=== PATIENT | female | born 1995 | race Caucasian/White ===

== ENCOUNTER 2016-08-16 20:04 | Inpatient (IN) | payer OTHER ==
[2016-08-16 21:05] LABS: HCT 36.3 % (37.0-47.0); HGB 12.3 g/dl (12.5-16.0); MCH 28.5 pg (25.0-31.0); MCHC 33.9 g/dL (32.0-36.0); MPV 12.2 fL (6.0-9.5); RBC 4.32 M/uL (4.20-5.40); RDW 13.9 % (11.5-14.0); WBC 9.8 K/uL (4.0-10.5)
[2016-08-16 21:06] LABS: BILIRUBIN NEGATIVE (NEGATIVE); BLOOD NEGATIVE Ery/uL (NEGATIVE); CLARITY CLEAR (CLEAR); COLOR YELLOW (YELLOW); GLUCOSE (U) NORMAL (NORMAL); KETONE (U) NEGATIVE (NEGATIVE); LEUKOCYTES 1+ Leu/uL (NEGATIVE); NITRITE NEGATIVE (NEGATIVE); PROTEIN NEGATIVE (NEGATIVE); UROBILINOGEN 0.2 mg/dL (0.2-1.0)
[2016-08-16 21:10] LABS: BACTERIA TRACE; URINARY RBC RARE
[2016-08-16 21:16] LABS: AMPHETAMINES NEGATIVE (NEGATIVE); BARBITURATES NEGATIVE (NEGATIVE); BENZODIAZEPINES NEGATIVE (NEGATIVE); COCAINE NEGATIVE (NEGATIVE); MARIJUANA (THC) NEGATIVE (NEGATIVE); METHADONE NEGATIVE (NEGATIVE); TRICYCLIC ANTIDEPRESSANT NEGATIVE (NEGATIVE)
[2016-08-18 09:57] LABS: HCT 31.2 % (37.0-47.0); HGB 10.6 g/dl (12.5-16.0); MCH 28.9 pg (25.0-31.0); MPV 11.3 fL (6.0-9.5); RBC 3.67 M/uL (4.20-5.40); RDW 14.1 % (11.5-14.0); WBC 15.3 K/uL (4.0-10.5)
== END 2016-08-19 18:00 | disposition home or self-care (01) | DRG 775 ==
LOC: FOB 20:04
PROVIDERS: Obstetrics & Gynecology; ADMIT Obstetrics & Gynecology
PROC: 3E0P7GC Introduction of Other Therapeutic Substance into Female Reproductive, Via Natural or Artificial Opening (ICD-10-PCS; 2016-08-16)
PROC: 4A1HX4Z Monitoring of Products of Conception, Cardiac Electrical Activity, External Approach (ICD-10-PCS; 2016-08-16)
PROC: 10E0XZZ Delivery of Products of Conception, External Approach (ICD-10-PCS; principal; 2016-08-17)
PROC: 0KQM0ZZ Repair Perineum Muscle, Open Approach (ICD-10-PCS; 2016-08-17)
PROC: 10E0XZZ Delivery of Products of Conception, External Approach (ICD-10-PCS; 2016-08-17)
PROC: 4A1HX4Z Monitoring of Products of Conception, Cardiac Electrical Activity, External Approach (ICD-10-PCS; 2016-08-17)
DX: O99.214 Obesity complicating childbirth (principal); D62 Acute posthemorrhagic anemia; Z37.0 Single live birth; E66.9 Obesity, unspecified; Z68.35 Body mass index [BMI] 35.0-35.9, adult; Z3A.40 40 weeks gestation of pregnancy; O26.893 Other specified pregnancy related conditions, third trimester; Z67.41 Type O blood, Rh negative; O99.03 Anemia complicating the puerperium; O70.1 Second degree perineal laceration during delivery
CPT/HCPCS: 36415; 80305; 81001; J2300; J2795